=== PATIENT | male | born 1965 | race Caucasian/White ===

== ENCOUNTER 2017-07-27 19:51 | Emergency (ER) | payer OTHER ==
[~2017-07-27] VITALS: Ht 180.3 cm; Wt 101.0 kg
[2017-07-27] MEDS ORDERED: FLEXERIL PO (20:53)
[2017-07-27] MEDS ORDERED: NAPROSYN500 MG PO (20:53)
[2017-07-27 21:28] VITALS: BP 128/73
== END 2017-07-27 21:26 | disposition home or self-care (01) | DRG 558 ==
LOC: EDSEX 19:51 → ED 19:51
DX: M75.91 Shoulder lesion, unspecified, right shoulder (principal); M25.511 Pain in right shoulder